=== PATIENT | male | born 2005 | race Caucasian/White ===

== ENCOUNTER 2023-01-05 13:11 | Emergency (ER) | payer OTHER ==
[~2023-01-05] VITALS: Ht 180.3 cm; Wt 63.0 kg
[2023-01-05 13:22] VITALS: BP 137/63
[2023-01-05] MEDS ORDERED: MUPI15CR12 TP ×2 (13:47→14:22)
[2023-01-05] MEDS ORDERED: HYDR30CR3 TP ×2 (13:47→14:22)
[2023-01-05] MEDS ORDERED: CEPH-558 PO ×2 (13:47→14:22)
[2023-01-05] MEDS ORDERED: ACET-66 PO ×2 (13:47→14:22)
== END 2023-01-05 13:59 | disposition home or self-care (01) ==
LOC: EMS 13:11
DX: L03.011 Cellulitis of right finger (principal); L24.9 Irritant contact dermatitis, unspecified cause
CPT/HCPCS: 99283; Z7502